=== PATIENT | male | born 1985 | race African-American/Black ===

== ENCOUNTER 2022-05-31 19:55 | Emergency (ER) | payer MEDICAID ==
[~2022-05-31] VITALS: Ht 185.4 cm; Wt 75.9 kg
[2022-05-31 20:28] LABS: BASOPHILS % 0.8 % (0.0-2.0); CHLORIDE 103 mEq/L (98-107); EOSINOPHILS % 1.1 % (0.0-5.0); HEMATOCRIT. 41.9 % (42.0-52.0); HEMOGLOBIN. 14.4 g/dL (14.0-18.0); LYMPHOCYTES % 47.8 % (20.0-50.0); MEAN CORPUSCULAR HEMOGLOBIN 32.4 pg (28.0-32.0); MEAN PLATELET VOLUME 8.3 fl (7.4-10.4); MONOCYTES % 9.4 % (2.0-8.0); NEUTROPHILS % 40.9 % (40.0-76.0); PLATELET 317 x1000/uL (130-400); RED BLOOD CELL COUNT 4.46 mill/uL (4.7-6.1); RED CELL DISTRIBUTION WIDTH 12.6 % (11.6-14.6)
[2022-05-31 20:31] LABS: PARTIAL THROMBOPLASTIN TIME 23.2 sec (23.4-31.0); PROTHROMBIN TIME 10.6 sec (9.6-11.0)
[2022-05-31] MEDS ORDERED: MORPHINE SULFATE 4 MG/ML CPJ (NOT FOR IM USE) IV ONE (21:00)
[2022-05-31] MEDS ORDERED: TETANUS, DIPHTHERIA, PERTUSSIS VAC/PF 0.5ML (>10YR OLD) IM ONE (21:15)
[2022-05-31 22:00] VITALS: BP 131/86
== END 2022-05-31 22:13 | disposition home or self-care (01) ==
LOC: ER 19:55
DX: S81.832A Puncture wound without foreign body, left lower leg, initial encounter (principal); X93.XXXA Assault by handgun discharge, initial encounter; Y93.89 Activity, other specified; Y92.830 Public park as the place of occurrence of the external cause; Y99.8 Other external cause status
CPT/HCPCS: 36415; 71045; 72170; 73590; 80053; 85025; 85610; 85730; 86850; 86900; 86901; 90471; 90715; 96374; 99291; J2270

== ENCOUNTER 2022-06-02 18:10 | Emergency (ER) | payer MEDICAID ==
[~2022-06-02] VITALS: Ht 185.4 cm; Wt 75.0 kg
[2022-06-02 18:26] VITALS: BP 130/93
[2022-06-02] MEDS ORDERED: BO1 TP (23:18)
[2022-06-02] MEDS ORDERED: T3 PO (23:18)
[2022-06-02] MEDS ORDERED: IBUP-2029 MT (23:18)
== END 2022-06-02 23:30 | disposition home or self-care (01) ==
LOC: ER 18:10
DX: Z48.00 Encounter for change or removal of nonsurgical wound dressing (principal)
CPT/HCPCS: 99282